=== PATIENT | female | born 1990 | race Two or more races ===

== ENCOUNTER 2020-07-18 07:15 | Inpatient (IN) | payer OTHER ==
[2020-07-18] MEDS ORDERED: BUTORPHANOL TARTRATE 1 MG/ML VIAL IVPB PRN (07:48)
[2020-07-18 09:06] LABS: BASO % 0.4 % (0-2.0); EOS % 0.3 % (0-4.5); HEMATOCRIT 34.5 % (32.4-45.2); HEMOGLOBIN 11.3 GM/dL (10.7-15.3); LYMPH % 10.9 % (8-40); MCH 23.5 pg (25.7-33.7); MCHC 32.9 g/dl (32.0-36.0); MEAN CELL VOLUME 71.6 fl (80-96); MEAN PLT VOLUME 7.2 fl (7.5-11.1); MONO % 5.7 % (3.8-10.2); NEUT % 82.7 % (42.8-82.8); PLATELET COUNT 319 K/MM3 (134-434); RBC 4.82 M/mm3 (3.60-5.2); RDW 16.6 % (11.6-15.6); WHITE BLOOD COUNT 9.6 K/mm3 (4.0-10.0)
[2020-07-18 09:14] VITALS: BMI 38.3
[2020-07-18 09:15] LABS: INR 0.95 (0.83-1.09); PROTHROMBIN TIME (PATIENT) 11.5 SEC (9.7-13.0)
[2020-07-18 09:18] LABS: ACTIVATED PTT 26.6 SECONDS (25.2-36.5)
[2020-07-18 09:26] LABS: BLOOD UREA NITROGEN 10.1 mg/dL (7-18); CALCIUM 8.6 mg/dL (8.5-10.1)
[2020-07-18 09:30] LABS: CREATININE 0.5 mg/dL (0.55-1.3)
[2020-07-18] MEDS ORDERED: DINOPROSTONE 10 MG VAGINAL SUPPOSITORY VG ONE ×2 (09:58→21:08)
[2020-07-18] MEDS: ELECTROLYTE-148 SOLN 1,000 ML IV SCH (18:00)
[2020-07-18] MEDS ORDERED: OXYTOCIN 30 UNITS in 0.9% NS 30 UNIT/500 ML INFUS.BAG IVPB SCH (21:45)
[2020-07-18] MEDS ORDERED: OXYTOCIN 30 UNITS in 0.9% NS 30 UNIT/500 ML INFUS.BAG IVPB ONE (22:12)
[2020-07-19] MEDS ORDERED: BUTORPHANOL TARTRATE 1 MG/ML VIAL ONE ×2 (01:36)
[2020-07-19] MEDS ORDERED: PCA PUMP NR ONE (06:08)
[2020-07-19] MEDS ORDERED: FENTANYL/BUPIVACAINE/NS/PF - PCEA - 50 ML DISP.SYRIN EP ONE (06:08)
[2020-07-19] MEDS ORDERED: BUPIVACAINE HCL/PF 0.25% (2.5MG/ML) 10 ML VIAL ONE (06:12)
[2020-07-19] MEDS ORDERED: NALOXONE HCL 0.4 MG/ML VIAL IVPUSH PRN (06:47)
[2020-07-19] MEDS ORDERED: FENTANYL/BUPIVACAINE/NS/PF - PCEA - 50 ML DISP.SYRIN EP SCH (07:00)
[2020-07-19] MEDS: ELECTROLYTE-148 SOLN 1,000 ML IV SCH (07:30)
[2020-07-19] MEDS ORDERED: diphenhydrAMINE HCL 25 MG CAPSULE (FP) PO PRN (08:22)
[2020-07-19] MEDS ORDERED: IBUPROFEN 800 MG/8 ML IJ IVPB PRN (08:22)
[2020-07-19] MEDS ORDERED: BENZOCAINE 28 GM HEMORRHOIDAL OINTMENT PR PRN (08:22)
[2020-07-19] MEDS ORDERED: WITCH HAZEL 50% (TUCKS) 40 PAD/JAR PAD TP PRN (08:22)
[2020-07-19] MEDS ORDERED: BENZOCAINE 20% 57 GM BOTTLE TP PRN (08:22)
[2020-07-19] MEDS ORDERED: METHYLERGONOVINE MALEATE 0.2 MG/1 ML AMP IM PRN (08:22)
[2020-07-19] MEDS ORDERED: OXYTOCIN 20 UNITS in 0.9% NS 20 UNIT/1,000 ML INFUS.BAG IV SCH (08:30)
[2020-07-19] MEDS ORDERED: LIDO 2%/EPI 1:200000 PRESRVFRE (20 ML SDVIAL) ONE (08:40)
[2020-07-19] MEDS ORDERED: morphine SULFATE/PF 0.5 MG/ML (2cc Syringe - QUVA) ONE (08:42)
[2020-07-19] MEDS ORDERED: SUCCINYLCHOLINE CHLORIDE 200 MG/10 ML SYRINGE ONE (08:42)
[2020-07-19] MEDS ORDERED: PROPOFOL 20 ML ONE (08:42)
[2020-07-19] MEDS ORDERED: PHENYLEPHRINE HCL 10 MG/1 ML SINGLE DOSE VIAL ONE ×2 (08:43)
[2020-07-19] MEDS ORDERED: ePHEDrine SULFATE 50 MG/1 ML AMPULE ONE (08:44)
[2020-07-19] MEDS ORDERED: OXYTOCIN 10 UNITS/ML VIAL ONE (08:54)
[2020-07-19] MEDS ORDERED: ONDANSETRON 4 MG/2 ML VIAL ONE (08:54)
[2020-07-19] MEDS ORDERED: ceFAZolin SODIUM 1 GM VIAL ONE (09:01)
[2020-07-19] MEDS ORDERED: morphine SULFATE/PF 0.5 MG/ML (2cc Syringe - QUVA) EP ONE (09:53)
[2020-07-19] MEDS ORDERED: ONDANSETRON 4 MG/2 ML VIAL IVPUSH PRN (09:53)
[2020-07-19 10:41] LABS: CORD HCO3 25.3 mmHg (20-29); CORD PCO2 47.4 mmHg (30-78); CORD pH 7.345 (7.14-7.44)
[2020-07-19 10:44] LABS: CORD HCO3 29.3 mmHg (20-29); CORD PCO2 64.8 mmHg (30-78); CORD pH 7.273 (7.14-7.44)
[2020-07-19] MEDS ORDERED: IBUPROFEN 800 MG/8 ML IJ IVPB ONE (10:54)
[2020-07-19] MEDS ORDERED: OXYTOCIN 20 UNITS in 0.9% NS 20 UNIT/1,000 ML INFUS.BAG IV ONE (11:14)
[2020-07-19] MEDS: IBUPROFEN 600 MG TABLET (FP) PO PRN ×2 (17:38→23:13)
[2020-07-19] MEDS: ACETAMINOPHEN 325 MG TABLET (FP) PO PRN ×2 (17:39→23:13)
[2020-07-19] MEDS: SIMETHICONE 80 MG TAB.CHEW (FP) PO PRN (23:13)
[2020-07-20] MEDS: SIMETHICONE 80 MG TAB.CHEW (FP) PO PRN ×3 (06:21→21:52)
[2020-07-20] MEDS: ACETAMINOPHEN 325 MG TABLET (FP) PO PRN ×3 (06:21→21:52)
[2020-07-20] MEDS: IBUPROFEN 600 MG TABLET (FP) PO PRN ×3 (06:22→21:53)
[2020-07-20] MEDS ORDERED: BISACODYL 10 MG SUPP.RECT PR PRN (08:22)
[2020-07-20] MEDS ORDERED: oxyCODONE HCL 5 MG TABLET PO PRN ×2 (08:22)
[2020-07-20] MEDS ORDERED: HYDROmorphone HCL 2 MG TABLET PO PRN (08:22)
[2020-07-20 08:38] LABS: MCH 23.5 pg (25.7-33.7); MCHC 33.2 g/dl (32.0-36.0); MEAN CELL VOLUME 70.7 fl (80-96); MEAN PLT VOLUME 6.9 fl (7.5-11.1); PLATELET COUNT 297 K/MM3 (134-434); RBC 4.24 M/mm3 (3.60-5.2); RDW 16.9 % (11.6-15.6); WHITE BLOOD COUNT 9.5 K/mm3 (4.0-10.0)
[2020-07-20 22:07] VITALS: TEMP 97.8
[2020-07-21] MEDS: IBUPROFEN 600 MG TABLET (FP) PO PRN (08:10)
[2020-07-21] MEDS: ACETAMINOPHEN 325 MG TABLET (FP) PO PRN (08:10)
[2020-07-21] MEDS: SIMETHICONE 80 MG TAB.CHEW (FP) PO PRN (08:11)
[2020-07-21 09:13] LABS: POC NITRAZINE POS
[2020-07-21 11:30] VITALS: BP 107/75; PULSE 80
[2020-07-21] MEDS ORDERED: SENNOSIDES/DOCUSATE COMBO (SENNA PLUS) TABLET (UD) PO PRN (22:00)
== END 2020-07-21 16:10 | disposition home or self-care (01) | DRG 540 ==
LOC: JLDR 07:15 → J3W 07-19 11:15
PROVIDERS: ADMIT Obstetrics & Gynecology; ATTEND Obstetrics & Gynecology
PROC: 3E0P7VZ Introduction of Hormone into Female Reproductive, Via Natural or Artificial Opening (ICD-10-PCS; 2020-07-18)
PROC: 3E033VJ Introduction of Other Hormone into Peripheral Vein, Percutaneous Approach (ICD-10-PCS; 2020-07-18)
PROC: 10D00Z1 Extraction of Products of Conception, Low, Open Approach (ICD-10-PCS; principal; 2020-07-19)
DX: O77.9 Labor and delivery complicated by fetal stress, unspecified (principal); O99.214 Obesity complicating childbirth; E66.9 Obesity, unspecified; O69.81X0 Labor and delivery complicated by cord around neck, without compression, not applicable or unspecified; Z3A.39 39 weeks gestation of pregnancy; Z37.0 Single live birth
CPT/HCPCS: 36415; 36600; 80048; 82803; 83986-QW; 85025; 85027; 85610; 85730; 86780; 86850; 86900; 86901; C9803; U0003; U0005

== ENCOUNTER 2024-01-22 12:05 | Observation (INO) | payer OTHER ==
[2024-01-22 12:11] VITALS: BMI 21.6
[2024-01-22] MEDS ORDERED: ACETAMINOPHEN INJECTION 100 ML ONE (13:24)
[2024-01-22] MEDS: SODIUM CHLORIDE 0.9% 500 ML INFUS.BAG IV ONE (13:29)
[2024-01-22] MEDS: ACETAMINOPHEN 1000 MG/100 ML BAG IVPB ONE (13:29)
[2024-01-22 13:42] LABS: BASO % 0.7 % (0-2.0); EOS % 0.4 % (0-4.5); HEMATOCRIT 40.5 % (32.4-45.2); HEMOGLOBIN 13.8 GM/dL (10.7-15.3); LYMPH % 12.1 % (8-40); MCH 25.6 pg (25.7-33.7); MCHC 34.1 g/dl (32.0-36.0); MEAN PLT VOLUME 6.9 fl (7.5-11.1); MONO % 6.2 % (3.8-10.2); NEUT % 80.6 % (42.8-82.8); PLATELET COUNT 373 10^3/uL (134-434); RDW 15.1 % (11.6-15.6); WHITE BLOOD COUNT 13.7 K/mm3 (4.0-10.0)
[2024-01-22 13:58] LABS: POTASSIUM 3.8 mmol/L (3.5-5.1)
[2024-01-22 14:01] LABS: BLOOD UREA NITROGEN 8.9 mg/dL (7-18); CALCIUM 9.5 mg/dL (8.5-10.1)
[2024-01-22 14:02] LABS: ALBUMIN 4.2 g/dl (3.4-5.0)
[2024-01-22] MEDS ORDERED: AMPICILLIN NA/SULBACTAM NA 3 GM/100 ML BAG IVPB ONE (14:04)
[2024-01-22 14:05] LABS: CREATININE 0.7 mg/dL (0.55-1.3)
[2024-01-22 14:07] LABS: BILIRUBIN,TOTAL 0.4 mg/dL (0.2-1); TOT PROT 8.1 g/dl (6.4-8.2)
[2024-01-22] MEDS: AMPICILLIN NA/SULBACTAM NA 3 GM in SODIUM CHLORIDE 100 ML IVPB ONE (14:11)
[2024-01-22] MEDS ORDERED: VANCOMYCIN 1 GRAM (PRE-DOCKED) 1,000 MG/250 ML BAG IVPB ONE (18:57)
[2024-01-22] MEDS: VANCOMYCIN 1 GRAM (PRE-DOCKED) 1,000 MG/250 ML BAG IVPB ONE (19:07)
[2024-01-22] MEDS: DEXTROSE 5%-LACTATED RINGERS 1,000 ML IV SCH (21:01)
[2024-01-23] MEDS: DOXYCYCLINE INJECTION 100 MG in DEXTROSE 5%-WATER 100 ML IVPB SCH ×2 (10:49→23:07)
[2024-01-23] MEDS: LACTATED RINGERS SOLUTION 1,000 ML/1,000 ML INFUS.BAG IV SCH (10:52)
[2024-01-23 11:57] LABS: INR 1.1 (0.83-1.09); PROTHROMBIN TIME (PATIENT) 12.4 SEC (9.7-13.0)
[2024-01-23 12:02] LABS: BASO % 0.4 % (0-2.0); EOS % 0.4 % (0-4.5); HEMATOCRIT 38.5 % (32.4-45.2); HEMOGLOBIN 13.5 GM/dL (10.7-15.3); LYMPH % 11.6 % (8-40); MCHC 35.1 g/dl (32.0-36.0); MEAN PLT VOLUME 7.3 fl (7.5-11.1); MONO % 4.6 % (3.8-10.2); PLATELET COUNT 350 10^3/uL (134-434); RDW 15.2 % (11.6-15.6); WHITE BLOOD COUNT 9.4 K/mm3 (4.0-10.0)
[2024-01-23 12:18] LABS: POTASSIUM 3.8 mmol/L (3.5-5.1)
[2024-01-23 12:24] LABS: ALBUMIN 3.6 g/dl (3.4-5.0)
[2024-01-23 12:25] LABS: BLOOD UREA NITROGEN 5.2 mg/dL (7-18); MAGNESIUM 2.1 mg/dL (1.8-2.4)
[2024-01-23 12:28] LABS: CREATININE 0.6 mg/dL (0.55-1.3)
[2024-01-23 12:29] LABS: BILIRUBIN,TOTAL 0.7 mg/dL (0.2-1); TOT PROT 7.5 g/dl (6.4-8.2)
[2024-01-23] MEDS ORDERED: ONDANSETRON 4 MG/2 ML VIAL IVPUSH PRN ×2 (12:48→15:17)
[2024-01-23] MEDS ORDERED: oxyCODONE HCL 5 MG TABLET PO PRN ×3 (12:48→19:50)
[2024-01-23] MEDS ORDERED: MIDAZOLAM HCL 2 MG/2 ML SINGLE DOSE VIAL ONE (13:38)
[2024-01-23] MEDS ORDERED: PROPOFOL 20 ML ONE ×2 (13:38→13:44)
[2024-01-23] MEDS ORDERED: ONDANSETRON 4 MG/2 ML VIAL ONE (14:10)
[2024-01-23 18:39] VITALS: RESP 18
[2024-01-24] MEDS: LACTATED RINGERS SOLUTION 1,000 ML/1,000 ML INFUS.BAG IV SCH (00:18)
[2024-01-24 09:27] LABS: BASO % 0.4 % (0-2.0); EOS % 0.9 % (0-4.5); HEMATOCRIT 36.7 % (32.4-45.2); HEMOGLOBIN 12.5 GM/dL (10.7-15.3); LYMPH % 15.8 % (8-40); MCH 25.6 pg (25.7-33.7); MCHC 34.1 g/dl (32.0-36.0); MEAN CELL VOLUME 75.1 fl (80-96); MEAN PLT VOLUME 7.1 fl (7.5-11.1); NEUT % 76.9 % (42.8-82.8); PLATELET COUNT 328 10^3/uL (134-434); RBC 4.88 M/mm3 (3.60-5.2); RDW 14.9 % (11.6-15.6); WHITE BLOOD COUNT 8.3 K/mm3 (4.0-10.0)
[2024-01-24 10:04] LABS: POTASSIUM 4.1 mmol/L (3.5-5.1)
[2024-01-24 10:08] LABS: CALCIUM 9.2 mg/dL (8.5-10.1)
[2024-01-24 10:12] LABS: BLOOD UREA NITROGEN 8.6 mg/dL (7-18)
[2024-01-24 10:15] LABS: CREATININE 0.6 mg/dL (0.55-1.3)
[2024-01-24] MEDS: ACETAMINOPHEN 1000 MG/100 ML BAG IVPB PRN (14:43)
[2024-01-24 18:56] VITALS: BP 92/50; PULSE 68; TEMP 98.8
== END 2024-01-24 13:50 | disposition home or self-care (01) ==
LOC: JER 12:05 → JERBED 18:04 → J5S 01-23 01:03
PROVIDERS: ADMIT Internal Medicine; ATTEND Internal Medicine
PROC: 0H95XZZ Drainage of Chest Skin, External Approach (ICD-10-PCS; principal; 2024-01-22)
DX: L72.0 Epidermal cyst (principal)
CPT/HCPCS: 36415; 74177-TC; 76641-TC-RT; 80048; 80053; 83735; 84100; 84703; 85025; 85610; 87070; 87205; 88304-TC; 94760; 99285-25; G0378; J0131; Q9967